=== PATIENT | female | born 1945 | race Caucasian/White ===

== ENCOUNTER → 2022-12-10 15:43 | Outpatient (CLI) | payer MEDICARE, OTHER, SELFPAY ==
--- NOTE | 2022-12-10 15:56 | MR_ITS ---
PROCEDURE INFORMATION: Exam: MR Head Without and With Contrast Exam date and time: 12/10/2022 4:19 PM Age: 77 years old Clinical indication: Pain; Headache; Additional info: Neck pain, migraines. Left sided neck pain. Symptoms x8 months. Dizziness and blurred vision TECHNIQUE: Imaging protocol: Magnetic resonance imaging of the head without and with contrast. Contrast material: PROHANCE; Contrast volume: 14 ml; Contrast route: IV; COMPARISON: No relevant prior studies available. FINDINGS: Brain: No acute intraparenchymal hemorrhage, territorial infarct or mass lesion. There are scattered T2 hyperintensities in the periventricular and subcortical white matter. The appearance is nonspecific, but most likely represents chronic small vessel disease in a person of this age. Chronic lacunar infarct in the body of the right caudate nucleus noted. No abnormal parenchymal or meningeal enhancement. Cerebral ventricles: The ventricles, sulci and cisterns are normal in size and configuration. No hydrocephalus or midline structure shift Bones/joints: Unremarkable. Paranasal sinuses: Normal as visualized. No acute sinusitis. Mastoid air cells: Normal as visualized. No mastoid effusion. Orbital cavities: Unremarkable. Vasculature: Flow voids of the major vascular structures are intact. Soft tissues: Unremarkable. IMPRESSION: 1. No acute intraparenchymal hemorrhage, territorial infarct or mass lesion. 2. Chronic lacunar infarct in the right caudate nucleus. White matter changes, statistically represent chronic small-vessel disease versus migraine related changes in the person of this age.
[2022-12-10 16:30] LABS: Blood Urea Nitrogen 15 mg/dl (7-17); Estimated Glomerular Filt Rate 97 ml/min (>60); GFR (African American) 118 ML/MIN (>60)
== END ==
PROVIDERS: PCP Family Medicine; Visit Provider Specialist
DX: G43.909 Migraine, unspecified, not intractable, without status migrainosus (principal); G89.29 Other chronic pain; M54.2 Cervicalgia
CPT/HCPCS: 36415; 70553; 82565; 84520; 94762; A9576

== ENCOUNTER → 2023-01-12 15:05 | Outpatient (CLI) | payer MEDICARE, OTHER, SELFPAY ==
--- NOTE | 2023-01-12 15:19 | XR_ITS ---
FINAL REPORT TECHNIQUE: Cervical spine plain films with flexion and extension lateral views. CLINICAL HISTORY: Severe neck pain for several months. COMPARISON: None FINDINGS: Cervical spine 5 views plus lateral seen flexion and extension: Multiple views of the cervical spine reveal moderate degenerative change. There is mild anterolisthesis of L4 on L5 of 2 mm, and of C5 on C6 also of 2 mm. There is severe facet osteoarthropathy at multiple levels, and moderate bilateral C4-5 bony foraminal narrowing. There is mild right C5-6 bony foraminal narrowing. Carotid artery calcifications are noted. Flexion and extension views reveal that the anterolisthesis at the C4-5 level becomes worse with flexion. The C5-6 anterolisthesis reduces with extension. IMPRESSION: Diffuse moderate degenerative change, particularly at the C4-5 and C5-6 levels where there is facet osteoarthropathy and anterolisthesis as described. Carotid artery calcifications are noted. Reviewed, Interpreted and Dictated by Tyrel Judge III, MD Transcribed by Brisa Do Authenticated and [facility]
[2023-01-12 15:53] LABS: Basophils # 0.1 K/mm3 (0-0.2); Basophils % 0.6 % (0.1-2.0); Eosinophils % 0.3 % (0.1-12.0); Hematocrit 43.2 % (37.0-47.0); Lymphocytes # 3.1 K/mm3 (0.7-4.5); Lymphocytes % 37.9 % (10-50); Mean Corpuscular HGB Conc 32.4 g/dL (31.8-35.4); Mean Corpuscular Hemoglobin 29.5 pg (27.0-31.2); Mean Corpuscular Volume 90.9 fl (81-99); Mean Platelet Volume 7.7 fl (7.4-10.4); Monocytes # 0.6 K/mm3 (0.1-1.0); Monocytes % 6.9 % (1.7-9.3); Neutrophils # 4.4 K/mm3 (1.8-7.8); Neutrophils % 54.4 % (37.0-80.0); Platelet Count 209 K/mm3 (142-424); Red Blood Count 4.76 M/mm3 (4.20-5.40); Red Cell Distribution Width 13.9 % (11.5-17.5); White Blood Count 8.2 K/mm3 (4.8-10.8)
[2023-01-12 16:49] LABS: Alanine Aminotransferase 26 U/L (12-78); Albumin Level 4.5 g/dl (3.5-5.0); Albumin/Globulin Ratio 1.5 (1.1-1.8); Alkaline Phosphatase 94 U/L (38-126); Aspartate Amino Transferase 34 U/L (14-36); Bilirubin,Total 0.4 mg/dl (0.2-1.3); Blood Urea Nitrogen 13 mg/dl (7-17); Calcium 9.7 mg/dl (8.4-10.2); Carbon Dioxide 27 mmol/L (22.0-30.0); Chloride 104 mmol/L (98-107); Estimated Glomerular Filt Rate 81 ml/min (>60); GFR (African American) 98 ML/MIN (>60); Globulin 3.1 g/dL (1.3-3.2); Glucose 92 mg/dl (74-100); Sodium 140 mmol/L (136-145); Total Protein,Serum 7.6 g/dl (6.3-8.2)
== END ==
PROVIDERS: PCP Family Medicine; Visit Provider Specialist
DX: G43.709 Chronic migraine without aura, not intractable, without status migrainosus (principal); Z85.038 Personal history of other malignant neoplasm of large intestine; G56.03 Carpal tunnel syndrome, bilateral upper limbs; G24.3 Spasmodic torticollis
CPT/HCPCS: 36415; 72052; 80053; 85025